=== PATIENT | male | born 1955 | race Caucasian/White ===

== ENCOUNTER → 2016-10-02 | Outpatient (CLI) | payer OTHER | LOC: YCFC.O 10:42 | PROVIDERS: ATTEND Anesthesiology Pain Medicine | DX: Z79.891 Long term (current) use of opiate analgesic (principal) | CPT/HCPCS: 80354; 80358; 80365; G0479 ==

== ENCOUNTER → 2016-11-21 | Outpatient (CLI) | payer OTHER | END | disposition home or self-care (01) | LOC: YCFC.O 16:09 | PROVIDERS: ATTEND Nurse Practitioner Family | DX: Z79.891 Long term (current) use of opiate analgesic (principal) ==

== ENCOUNTER → 2016-12-05 | Outpatient (CLI) | payer OTHER | END | disposition home or self-care (01) | LOC: GMAM 11:11 | PROVIDERS: ATTEND Family Medicine | DX: Z12.5 Encounter for screening for malignant neoplasm of prostate (principal) ==

== ENCOUNTER → 2016-12-19 | Outpatient (CLI) | payer OTHER | END | disposition home or self-care (01) | LOC: YCFC.O 15:36 | PROVIDERS: ATTEND Nurse Practitioner Family | DX: Z79.891 Long term (current) use of opiate analgesic (principal) ==

== ENCOUNTER → 2017-01-16 | Outpatient (CLI) | payer OTHER | END | disposition home or self-care (01) | LOC: YCFC.O 15:25 | PROVIDERS: ATTEND Anesthesiology Pain Medicine | DX: Z79.891 Long term (current) use of opiate analgesic (principal) ==

== ENCOUNTER → 2017-02-13 | Outpatient (CLI) | payer OTHER | LOC: YCFC.O 14:50 | PROVIDERS: ATTEND Anesthesiology Pain Medicine | DX: Z79.891 Long term (current) use of opiate analgesic (principal) ==

== ENCOUNTER → 2017-03-27 | Outpatient (CLI) | payer OTHER | END | disposition home or self-care (01) | LOC: YCFC.O 15:26 | PROVIDERS: ATTEND Anesthesiology Pain Medicine | DX: Z79.891 Long term (current) use of opiate analgesic (principal) ==

== ENCOUNTER → 2017-04-24 | Outpatient (CLI) | payer OTHER | END | disposition home or self-care (01) | LOC: YCFC.O 14:31 | PROVIDERS: ATTEND Anesthesiology Pain Medicine | DX: Z79.891 Long term (current) use of opiate analgesic (principal) ==

== ENCOUNTER → 2017-05-22 | Outpatient (CLI) | payer OTHER | END | disposition home or self-care (01) | LOC: YCFC.O 14:37 | PROVIDERS: ATTEND Anesthesiology Pain Medicine | DX: Z79.891 Long term (current) use of opiate analgesic (principal) ==

== ENCOUNTER → 2017-06-13 | Outpatient (CLI) | payer OTHER | END | disposition home or self-care (01) | LOC: GMAM 12:39 | PROVIDERS: ATTEND Family Medicine | DX: D64.9 Anemia, unspecified (principal) ==

== ENCOUNTER 2017-06-16 13:17 | Emergency (ER) | payer OTHER ==
[2017-06-16] MEDS ORDERED: IPRATROPIUM/ALBUTEROL 3 ML VIAL NEB ONE (13:50)
[2017-06-16] MEDS ORDERED: predniSONE 20 MG TAB PO ONE (13:50)
--- NOTE | 2017-06-16 14:09 | RAD ---
Procedure: XR CHEST 2 VIEWS Exam Date: 06/16/2017 1:49 PM CDT Ordering Provider: Drew Velasquez Clinical Indication: rll pleuritic pain Comparison: 2016 Findings: Small right middle lobe consolidative opacity is present. No pleural effusion or pneumothorax is seen. The heart size is normal. No acute osseous abnormality. Impression: Small right middle lobe opacification may represent early pneumonia/aspiration. Recommend follow-up with two views of the chest to document complete resolution.. Electronically signed by: Tania José MD 06/16/2017 2:08 PM CDT
[2017-06-16] MEDS ORDERED: levoFLOXacin 500 MG TAB PO ONE (14:25)
--- NOTE | 2017-06-16 14:27 | ED.PDOC ---
History of Present Illness - General Chief Complaint: Respiratory Problem Stated Complaint: Discomfort with deep breathing Time Seen by Provider: 06/16/17 13:38 Source: patient Exam Limitations: no limitations - History of Present Illness Initial Comments: the patient is a 62-year-old male with a history of COPD presenting secondary to right pleuritic chest pain to the lower half of the right chest for the last 24-36 hours. He has had a productive cough for the last several days. No definite fevers. No shortness of breath. He is currently taking Flagyl for a stomach infection. Pain is worse of course with taking a deep breath and coughing. Timing/Duration: 24 hours Severity: mild Improving Factors: nothing Associated Symptoms: cough Allergies/Adverse Reactions: Allergies Penicillins Allergy (Mild, Verified 06/16/17 13:28) Hives Home Medications: Ambulatory Orders Tpjxjlomewnxy-Cmbw-Sfggicimgs [Fioricet] 1 ea PO Q8H PRN #21 tab 06/16/17 Amitriptyline HCl [Elavil] 25 mg PO BEDTIME 06/16/17 Amlodipine Besylate 10 mg PO DAILY 06/16/17 Aspirin [Chavez Low Dose] 81 mg PO DAILY 06/16/17 Bismuth Subsalicylate [Kaopectate] 262 mg PO QID 06/16/17 Docusate Calcium 240 mg PO DAILY 06/16/17 Finasteride [Proscar] 5 mg PO DAILY 06/16/17 Glucosamine Sulfate 1,000 mg PO DAILY 06/16/17 Hydrocodone-Acetaminophen [Vicodin Es] 1 tab PO TID 06/16/17 Losartan Potassium & Hydrochlo [Losartan Potassium/Hydroc 100-25 mg] 1 tab PO DAILY 06/16/17 Meloxicam 15 mg PO DAILY 06/16/17 Metronidazole 250 mg PO QID 06/16/17 Multiple Vitamins W/ Minerals [Centrum Silver] 1 ea PO DAILY 06/16/17 Pantoprazole Tablet [Protonix] 40 mg PO DAILY 06/16/17 Potassium 99 mg PO DAILY 06/16/17 Tiotropium [place]-Olodaterol [Stiolto Respimat 2.5-2.5 Mcg/Act] 1 aer IN DAILY 06/16/17 levoFLOXacin [Levaquin] 500 mg PO DAILY #5 tab 06/16/17 Review of Systems - Review of Systems Constitutional: States: malaise EENTM: States: no symptoms reported Respiratory: States: cough Cardiology: States: chest pain - with breathing Gastrointestinal/Abdominal: States: no symptoms reported Genitourinary: States: no symptoms reported Musculoskeletal: States: no symptoms reported Skin: States: no symptoms reported Neurological: States: no symptoms reported Endocrine: States: no symptoms reported All other Systems: No Change from Baseline Past Medical History (General) - Patient Medical History Hx Seizures: No Hx Stroke: No Hx Dementia: No Hx Asthma: No Hx of COPD: Yes Hx Cardiac Disorders: No Hx Congestive Heart Failure: No Hx Pacemaker: No Hx Hypertension: Yes Hx Thyroid Disease: No Hx Diabetes: No Hx Gastroesophageal Reflux: Yes Hx Renal Disease: No Hx Cancer: No Hx of HIV: No Hx Hepatitis C: No Hx MRSA: No Surgical History: no surgical history - Vaccination History Hx Tetanus, Diphtheria Vaccination: No Hx Influenza Vaccination: Yes - 2016 Hx Pneumococcal Vaccination: No - Social History Hx Tobacco Use: Yes Hx Chewing Tobacco Use: No Hx Alcohol Use: No Hx Substance Use: No Hx Substance Use Treatment: No Hx Depression: No Hx Physical Abuse: No Hx Emotional Abuse: No Hx Suspected Abuse: No Family Medical History - Family History Mother Living Status: Still Living Hx Cardiac Disease: Yes Physical Exam - Physical Exam General Appearance: Alert, Comfortable, No apparent distress Eye Exam: bilateral normal Ears, Nose, Throat: hearing grossly normal, normal ENT inspection, normal pharynx Neck: full range of motion, supple Respiratory: chest non-tender, no respiratory distress, no accessory muscle use , other - he patient does have some audible ralesin the lower third of the right lung Cardiovascular/Chest: normal peripheral pulses, regular rate, rhythm, no edema Peripheral Pulses: radial,right: 2+, radial,left: 2+, dorsalis pedis,right: 2+, dorsalis pedis,left: 2+ Rectal Exam: deferred Back Exam: normal inspection, no CVA tenderness, no vertebral tenderness Extremity: normal range of motion, non-tender, normal inspection, no pedal edema , normal capillary refill 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 The patient was given 1 dose of prednisone for his COPD as well as for the pleuritic pain. He'll be written for a short prescription of Fioricet as well for the pleuritic pain. He is going to be placed on Levaquin for the next 5 days for the pneumonia. He does need follow-up with his primary care doctor next week for reevaluation to make sure that it is clearing. He does need to continue his inhaler use. No smoking. ER warnings were given for any worsening. He does need to take deep breaths and make himself cough to prevent further atelectasis and pleuritic pains. Departure - Departure Clinical Impression: Pneumonia Qualifiers: Pneumonia type: due to unspecified organism Laterality: right Lung location: lower lobe of lung Qualified Code(s): J18.1 - Lobar pneumonia, unspecified organism Disposition: Discharge to Home or Self Care Condition: Fair Departure Forms: ED Discharge - Pt. Copy, Patient Portal Self Enrollment Diet: regular diet Activity: increase activity as tolerated Referrals: Deondre Velasquez MD [Primary Care Provider] - 1-5 Days Prescriptions: Astyefygjhvcz-Odpw-Kpkwdzxtcj [Fioricet] 1 ea PO Q8H PRN #21 tab PRN Reason: Pain levoFLOXacin [Levaquin] 500 mg PO DAILY #5 tab Home Medications: Ambulatory Orders Bvtasprxwhvay-Imaa-Blbiggpjlx [Fioricet] 1 ea PO Q8H PRN #21 tab 06/16/17 Amitriptyline HCl [Elavil] 25 mg PO BEDTIME 06/16/17 Amlodipine Besylate 10 mg PO DAILY 06/16/17 Aspirin [Chavez Low Dose] 81 mg PO DAILY 06/16/17 Bismuth Subsalicylate [Kaopectate] 262 mg PO QID 06/16/17 Docusate Calcium 240 mg PO DAILY 06/16/17 Finasteride [Proscar] 5 mg PO DAILY 06/16/17 Glucosamine Sulfate 1,000 mg PO DAILY 06/16/17 Hydrocodone-Acetaminophen [Vicodin Es] 1 tab PO TID 06/16/17 Losartan Potassium & Hydrochlo [Losartan Potassium/Hydroc 100-25 mg] 1 tab PO DAILY 06/16/17 Meloxicam 15 mg PO DAILY 06/16/17 Metronidazole 250 mg PO QID 06/16/17 Multiple Vitamins W/ Minerals [Centrum Silver] 1 ea PO DAILY 06/16/17 Pantoprazole Tablet [Protonix] 40 mg PO DAILY 06/16/17 Potassium 99 mg PO DAILY 06/16/17 Tiotropium [place]-Olodaterol [Stiolto Respimat 2.5-2.5 Mcg/Act] 1 aer IN DAILY 06/16/17 levoFLOXacin [Levaquin] 500 mg PO DAILY #5 tab 06/16/17 Additional Instructions: the patient is a 62-year-old male presenting to the emergency room secondary to pleurisy that appears to be due to a small right lower third lung pneumonia. The patient was given 1 dose of prednisone for his COPD as well as for the pleuritic pain. He'll be written for a short prescription of Fioricet as well for the pleuritic pain. He is going to be placed on Levaquin for the next 5 days for the pneumonia. He does need follow-up with his primary care doctor next week for reevaluation to make sure that it is clearing. He does need to continue his inhaler use. No smoking. ER warnings were given for any worsening. He does need to take deep breaths and make himself cough to prevent further atelectasis and pleuritic pains.
[2017-06-16 14:41] VITALS: BP 125/62; TEMP 96.8; O2SAT 97
== END 2017-06-16 14:41 | disposition home or self-care (01) ==
LOC: ER 13:17
DX: J18.1 Lobar pneumonia, unspecified organism (principal); J44.9 Chronic obstructive pulmonary disease, unspecified; Z87.891 Personal history of nicotine dependence; I10 Essential (primary) hypertension; K21.9 Gastro-esophageal reflux disease without esophagitis; Z79.899 Other long term (current) drug therapy; Z88.0 Allergy status to penicillin
CPT/HCPCS: 71020; 94640; J7512; J7620

== ENCOUNTER → 2017-06-19 | Outpatient (CLI) | payer OTHER | END | disposition home or self-care (01) | LOC: YCFC.O 15:08 | PROVIDERS: ATTEND Anesthesiology Pain Medicine | DX: Z79.891 Long term (current) use of opiate analgesic (principal) ==

== ENCOUNTER → 2017-07-24 | Outpatient (CLI) | payer OTHER | END | disposition home or self-care (01) | LOC: YCFC.O 13:04 | PROVIDERS: ATTEND Anesthesiology Pain Medicine | DX: Z79.891 Long term (current) use of opiate analgesic (principal) ==

== ENCOUNTER 2017-08-13 13:44 | Observation (INO) | payer OTHER ==
[2017-08-13] MEDS ORDERED: ASPIRIN TABLET 325 MG TAB PO ONE (13:56)
--- NOTE | 2017-08-13 14:32 | RAD ---
EXAM DESCRIPTION: Chest,1 View CLINICAL HISTORY: 62 years Male, possible tia. Weakness. Malaise. COMPARISON: 06/16/2017 IMPRESSION: The heart remains at the upper limits of normal in size, with borderline central pulmonary vascular congestion. There is a questionable nodular opacity in the lateral aspect of the right upper lung zone which is favored to represent summation artifact of overlying osseous structures, but consolidation or a pulmonary nodule is not excluded. Follow-up PA and lateral chest radiographs versus CT chest recommended. The lungs are mildly hyperexpanded. There is no pleural effusion or pneumothorax. No acute osseous abnormality. Electronically signed by: Antoine Rob MD 08/13/2017 2:31 PM CUSTOMER SUPPORT AGENT
--- NOTE | 2017-08-13 14:35 | CT ---
EXAM DESCRIPTION: Head CLINICAL HISTORY: TIA. CVA. Weakness. COMPARISON: None available TECHNIQUE: Multiple axial images of the head without contrast. Multiplanar reformatted images. This exam was performed according to our departmental dose-optimization program, which includes automated exposure control, adjustment of the mA and/or kV according to patient size and/or use of iterative reconstruction technique. FINDINGS: There is no CT evidence of intracranial hemorrhage, mass effect, or large territory infarction. Mild generalized volume loss is present. Mild patchy supratentorial white matter hypodensities. There are no abnormal extra-axial fluid collections. Calcific plaque in the visualized arteries. There is no acute calvarial defect. Mucosal thickening throughout the maxillary sinuses and ethmoid air cells. The mastoid air cells are clear. IMPRESSION: 1. No CT evidence of an acute intracranial abnormality. If there is concern for an acute or subacute infarct, consider follow-up MRI. 2. Senescent changes. Electronically signed by: Antoine Rob MD 08/13/2017 2:34 PM 5TH GRADE TEACHER
--- NOTE | 2017-08-13 18:47 | ED.PDOC ---
History of Present Illness - General Chief Complaint: Neuro Symptoms/Deficits Stated Complaint: left side facial droop Time Seen by Provider: 08/13/17 13:49 Source: patient Exam Limitations: no limitations - History of Present Illness Initial Comments: the patient is a 62-year-old male brought in by his secondary to sudden onset of inability to move the right side of his face. From the time the noticed it until the patient presented here was less than 30 minutes and in that timeframe symptoms had completely resolved. She reports that he had some difficulty with slurring of his speech. He apparently did not have much difficulty finding his words. No difficulty with movement or sensation of his upper or lower extremities. No loss of consciousness. No chest pain or palpitations. No drowsiness. Timing/Duration: 1/2 hour Severity: moderate Improving Factors: nothing Worsening Factors: nothing Associated Symptoms: denies symptoms Allergies/Adverse Reactions: Allergies Penicillins Allergy (Mild, Verified 06/16/17 13:28) Hives Home Medications: Ambulatory Orders Amitriptyline HCl [Elavil] 25 mg PO BEDTIME 06/16/17 Amlodipine Besylate 10 mg PO DAILY 06/16/17 Aspirin [Chavez Low Dose] 81 mg PO DAILY 06/16/17 Finasteride [Proscar] 5 mg PO DAILY 06/16/17 Glucosamine Sulfate 1,000 mg PO DAILY 06/16/17 Meloxicam 15 mg PO DAILY 06/16/17 Multiple Vitamins W/ Minerals [Centrum Silver] 1 ea PO DAILY 06/16/17 Pantoprazole Tablet [Protonix] 40 mg PO DAILY 06/16/17 Potassium 99 mg PO DAILY 06/16/17 Ascorbic Acid [Vitamin C] 500 mg PO DAILY 08/13/17 B-Complex W/ Folic Acid [Super B Complex Maxi] 1 tab PO DAILY 08/13/17 Budesonide-Formoterol Fumarate [Symbicort] 1 aer IN DAILY 08/13/17 Cyclobenzaprine HCl 10 mg PO Q8H PRN 08/13/17 Docusate Sodium 100 mg PO DAILY 08/13/17 HYDROcodone 7.5MG/APAP 325MG [[place] 7.5/325] 1 ea PO Q8H 08/13/17 Losartan Potassium & Hydrochlo [Losartan Potassium/Hydroc 100-25 mg] 1 tab PO DAILY 08/13/17 Magnesium 500 mg PO DAILY 08/13/17 Umeclidinium [place] [Incruse Ellipta] 62.5 mcg IN DAILY 08/13/17 Review of Systems - Review of Systems Constitutional: States: no symptoms reported EENTM: States: no symptoms reported Respiratory: States: no symptoms reported Cardiology: States: no symptoms reported Gastrointestinal/Abdominal: States: no symptoms reported Genitourinary: States: no symptoms reported Musculoskeletal: States: no symptoms reported Skin: States: no symptoms reported Neurological: States: see HPI Endocrine: States: no symptoms reported Hematologic/Lymphatic: States: no symptoms reported All other Systems: No Change from Baseline Past Medical History (General) - Patient Medical History Hx Seizures: No Hx Stroke: No Hx Dementia: No Hx Asthma: No Hx of COPD: Yes Hx Cardiac Disorders: No Hx Congestive Heart Failure: No Hx Pacemaker: No Hx Hypertension: Yes Hx Thyroid Disease: No Hx Diabetes: No Hx Gastroesophageal Reflux: Yes Hx Renal Disease: No Hx Cancer: No Hx of HIV: No Hx Hepatitis C: No Hx MRSA: No Surgical History: no surgical history - Vaccination History Hx Tetanus, Diphtheria Vaccination: No Hx Influenza Vaccination: Yes - 2016 Hx Pneumococcal Vaccination: No - Social History Hx Tobacco Use: Yes Hx Chewing Tobacco Use: No Hx Alcohol Use: No Hx Substance Use: No Hx Substance Use Treatment: No Hx Depression: No Hx Physical Abuse: No Hx Emotional Abuse: No Hx Suspected Abuse: No - Triage Comment ED Triage Comment: Daughter states patient has left sided facial droop. Family Medical History - Family History Mother Living Status: Still Living Hx Cardiac Disease: Yes Physical Exam - Physical Exam General Appearance: Alert, Comfortable, No apparent distress Eye Exam: bilateral normal Ears, Nose, Throat: hearing grossly normal, normal ENT inspection, normal pharynx Neck: full range of motion, supple, normal inspection Respiratory: lungs clear, normal breath sounds, no respiratory distress, no accessory muscle use Cardiovascular/Chest: normal peripheral pulses, regular rate, rhythm, no edema Peripheral Pulses: radial,right: 2+, radial,left: 2+, dorsalis pedis,right: 2+, dorsalis pedis,left: 2+ Gastrointestinal/Abdominal: non tender, soft Rectal Exam: deferred Back Exam: no CVA tenderness Extremity: normal range of motion, non-tender, normal inspection, no pedal edema , normal capillary refill 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, no motor/sensory deficits, alert, normal mood/affect, oriented x 3 DTR: 2+: Patellar, left, Patellar, right Skin Exam: normal color Comments: Vital Signs - 24 hr 08/13/17 08/13/17 08/13/17 13:45 13:52 14:30 Temperature Pulse Rate [ 84 83 85 Right] Respiratory 18 20 18 Rate Blood Pressure 132/66 160/77 131/67 [Right Arm] O2 Sat by Pulse 97 100 98 Oximetry 08/13/17 08/13/17 08/13/17 16:00 16:40 17:00 Temperature 97.0 F L Pulse Rate [ 82 83 Right] Respiratory 18 18 Rate Blood Pressure 138/81 154/73 [Right Arm] O2 Sat by Pulse 96 96 Oximetry 08/13/17 18:00 Temperature Pulse Rate [ 87 Right] Respiratory 18 Rate Blood Pressure 145/79 [Right Arm] O2 Sat by Pulse 96 Oximetry Progress - Progress Progress: 08/13/17 18:50 the patient is a 62-year-old male presenting with what is most likely a TIA. the 's description was fairly convincing. All symptoms seemed to have resolved by the time he arrived here. The patient will be admitted for observation. Continue telemetry monitoring and neuro checks. Head CT is reassuring. EKG is reassuring. There has been no elevation of the troponin. Aspirin has been given a full dose. Consideration can be given to the continuation of his current aspirin dosage versus switching to Plavix or adding Plavix or switching to Aggrenox in the future to prevent further events. Additional vascular imaging may be warranted. - Results/Orders Results/Orders: Laboratory Tests 08/13/17 08/13/17 08/13/17 13:55 13:56 13:56 WBC RBC Hgb Hct MCV MCH MCHC RDW Plt Count MPV Absolute Neuts (auto) Absolute Lymphs (auto) Absolute Monos (auto) Absolute Eos (auto) Absolute Basos (auto) Neutrophils % Lymphocytes % Monocytes % Eosinophils % Basophils % PT 11.8 INR 1.040 PTT (SP) 30.7 Sodium 134 L Potassium 3.8 Chloride 100 L Carbon Dioxide 25 Anion Gap 12.8 BUN 17 Creatinine 1.07 BUN/Creatinine Ratio 15.9 Random Glucose 123 H Serum Osmolality 271.1 L Calcium 9.2 Magnesium 1.9 Total Bilirubin 0.4 AST 24 ALT 22 Alkaline Phosphatase 151 H Creatine Kinase 57 CK-MB (CK-2) 5.9 H* CK-MB (CK-2) % 10.35 H Troponin I < 0.02 B-Natriuretic Peptide 32.5 Serum Total Protein 7.0 Albumin 3.9 Globulin 3.1 Albumin/Globulin Ratio 1.3 08/13/17 08/13/17 14:07 17:35 WBC 8.1 RBC 4.11 L Hgb 10.8 L Hct 32.8 L MCV 79.8 L MCH 26.2 L MCHC 32.9 L RDW 16.7 H Plt Count 308 MPV 8.1 Absolute Neuts (auto) 6.30 Absolute Lymphs (auto) 1.20 Absolute Monos (auto) 0.40 Absolute Eos (auto) 0.10 Absolute Basos (auto) 0.10 Neutrophils % 78.2 H Lymphocytes % 14.3 L Monocytes % 5.3 Eosinophils % 1.2 Basophils % 1.0 PT INR PTT (SP) Sodium Potassium Chloride Carbon Dioxide Anion Gap BUN Creatinine BUN/Creatinine Ratio Random Glucose Serum Osmolality Calcium Magnesium Total Bilirubin AST ALT Alkaline Phosphatase Creatine Kinase 55 CK-MB (CK-2) 5.7 H* CK-MB (CK-2) % 10.36 H Troponin I < 0.02 B-Natriuretic Peptide Serum Total Protein Albumin Globulin Albumin/Globulin Ratio chest x-ray shows no evidence of acute pathology. There is a question of a small nodule that needs a repeat radiological study in the near future. Head CT shows no evidence of any hemorrhage or acute ischemic stroke. No significant hydrocephalus. No significant mass effect. eKG shows normal sinus rhythm. No acute ST segment changes concerning for ischemia.normal axis. Normal QT interval. - EKG/XRAY/CT CT Ordered: Yes Departure - Departure Clinical Impression: Transient ischaemic attack (TIA), and cerebral infarction without residual deficits Disposition: Admit Patient Condition: Fair Referrals: Deondre Velasquez MD [Primary Care Provider] - 1-2 Weeks Home Medications: Ambulatory Orders Amitriptyline HCl [Elavil] 25 mg PO BEDTIME 06/16/17 Amlodipine Besylate 10 mg PO DAILY 06/16/17 Aspirin [[place] Low Dose] 81 mg PO DAILY 06/16/17 Finasteride [Proscar] 5 mg PO DAILY 06/16/17 Glucosamine Sulfate 1,000 mg PO DAILY 06/16/17 Meloxicam 15 mg PO DAILY 06/16/17 Multiple Vitamins W/ Minerals [Centrum Silver] 1 ea PO DAILY 06/16/17 Pantoprazole Tablet [Protonix] 40 mg PO DAILY 06/16/17 Potassium 99 mg PO DAILY 06/16/17 Ascorbic Acid [Vitamin C] 500 mg PO DAILY 08/13/17 B-Complex W/ Folic Acid [Super B Complex Maxi] 1 tab PO DAILY 08/13/17 Budesonide-Formoterol Fumarate [Symbicort] 1 aer IN DAILY 08/13/17 Cyclobenzaprine HCl 10 mg PO Q8H PRN 08/13/17 Docusate Sodium 100 mg PO DAILY 08/13/17 HYDROcodone 7.5MG/APAP 325MG [[place] 7.5/325] 1 ea PO Q8H 08/13/17 Losartan Potassium & Hydrochlo [Losartan Potassium/Hydroc 100-25 mg] 1 tab PO DAILY 08/13/17 Magnesium 500 mg PO DAILY 08/13/17 Umeclidinium [place] [Incruse Ellipta] 62.5 mcg IN DAILY 08/13/17 Decision To Admit - Decistion To Admit Decision to Admit Reason: Medical Nature Decision to Admit Date: 08/13/17 Decision to Admit Time: 18:53
[2017-08-13] MEDS ORDERED: SODIUM CHLORIDE 0.9% (FLUSH) 10 ML SYG IV PRN (20:24)
[2017-08-13] MEDS ORDERED: MAGNESIUM HYDROXIDE 30 ML UD PO PRN (20:24)
[2017-08-13] MEDS ORDERED: LEVALBUTEROL NEBS 1.25 MG/3 ML VIAL INH PRN (20:24)
[2017-08-13] MEDS ORDERED: ENOXAPARIN SODIUM 40 MG/0.4 ML SYG SUBCU SCH (20:30)
[2017-08-13] MEDS ORDERED: IV SET AND CAP CHANGE INJ INJ SCH (20:30)
--- NOTE | 2017-08-13 20:37 | PCM.CORE ---
Physician DVT/VTE - Prophylaxis Currently: Patient already on anticoagulation therapy - 2 Moderate Risk Treatments: Sequential Compression Device
--- NOTE | 2017-08-13 20:39 | HP ---
HISTORY OF PRESENT ILLNESS: This 62 year-old white male is placed in the hospital from the Emergency Room because of an acute onset of left facial weakness showing almost complete resolution and return towards normal but requiring observation overnight. No previous history of similar symptoms in the past. This had its occurrence after awakening from a sleep as he was getting some food and occurred about 1:30 PM this afternoon. Duration was 20 to 30 minutes. No pain. When his left side of his face was touched, there was no significant numbness. Some slurred speech was noted by family but he says he has some of that anyway because he does not have any teeth. There was no choking. He has noted a sore throat for the last 7 days [address] has [address] Dr[address] Velasquez , his primary care physician, and no Strep was noted. There was no associated arm or leg weakness or difficulty walking and no cardiac rhythm disturbances or palpitations were noted. He does have chronic low back pain for which he takes [place] 7.5 mg 3 times a day with radiation of the pain down his right leg and sees the pain clinic which he did see earlier this morning, but did not receive any injections. Otherwise has continued on his t.i.d. [place]. The patient is placed in the hospital for observation overnight and to obtain a carotid Doppler ultrasound in the morning to complete the evaluation along with telemetry overnight. PAST MEDICAL HISTORY: 1. Hypertension. 2. Low back pain chronically. 3. Chronic obstructive pulmonary disease in a chronic smoker now stopped for a year. 4. Gastroesophageal reflux disease. 5. Weakness. 6. Anemia. PAST SURGICAL HISTORY: None. CURRENT MEDICATIONS: Please refer to nurses' notes for a list of verified home medications. ALLERGIES: PENICILLIN AND ORANGE JUICE UPSETS HIS STOMACH. FAMILY HISTORY: Positive for coronary artery disease, strokes and cancer. 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 Tobacco: He has about a 60 pack year history of smoking, stopping about a year ago. He stopped drinking alcoholic beverages which he significantly consumed in the past as well. REVIEW OF SYSTEMS: Some weight gain recently because not being as active as he would like to be. HEENT: No significant hearing or vision disturbances evident. LUNGS: Some chronic shortness of breath upon exertion. No significant hemoptysis. CARDIOVASCULAR: No chest pains or palpitations noted. GASTROINTESTINAL: Appetite is fair. No nausea, vomiting or blood in the stools. GENITOURINARY: No dysuria. EXTREMITIES: No significant pedal edema or decreased range of motion. NEUROLOGIC: Transient 20 to 30 minutes of left sided facial weakness with no paresthesias noted by the family with no previous history, now resolved and back to normal. PHYSICAL EXAMINATION: VITAL SIGNS: Afebrile, pulse 83, blood pressure 138/77, pulse oximetry 98% on room air. Weight 79 kilos stated weight, not measured. GENERAL: The patient is awake, alert and oriented. He is able to ambulate and feels more comfortable sitting in a chair during the exam. He is quite cool in the E. R. environment. HEENT: No facial weakness or asymmetry evident. NECK: Supple. No adenopathy or thyroid enlargement. CHEST: Lungs have some diminished breath sounds with occasional rhonchi. CARDIOVASCULAR: Heart tones are regular without any significant gallops. ABDOMEN: Distended and somewhat tight. No tympani. No organomegaly evident but he does have some distention of intraabdominal bowel contents. History of a ventral hernia, generally asymptomatic. EXTREMITIES: Well formed. No weakness. No significant edema. NEUROLOGIC: The patient is awake, alert and oriented, and communicative. Able to ambulate. Able to move all extremities with no significant motor or sensory deficits at this time. LABORATORY: White count 8,100, hemoglobin 10.8 with a microcytic hypochromic presentation. INR of 1.04. Chemistry shows potassium 3.8, sodium 134, CO2 25, BUN 17, creatinine 1.07, glucose 123. CPK is normal yet CK-MB elevated at 5.9, troponin zero. Beta natriuretic peptide 32.5, albumin 3.9. Urinalysis is pending. RADIOLOGY: X-rays showed no acute findings on the head CT or the chest x-ray but there may be a small pulmonary nodule present which will be followed-up closely in the morning with a two view chest film. ASSESSMENT: 1. Acute transient ischemic attack with left facial motor involvement and weakness now resolved to normality. No evidence of central or peripheral facial nerve involvement because we were unable to examine at the time of the neurological deficit possible transient ischemic attack. 2. Hypertension. 3. Chronic low back pain being seen in the pain clinic and on t.i.d. 7.5 Hydrocodone. 4. Chronic obstructive pulmonary disease in a chronic smoker now stopped for a year with over a 60 pack year history of smoking. 5. History of gastroesophageal reflux disease. 6. History of weakness. 7. History of anemia with a microcytic hypochromic presentation. PLAN: Repeat evaluation in the morning. Await carotid ultrasound Doppler exam. Observe telemetry tonight. Await TSH and other iron studies as well as repeat chest x-ray in the morning to evaluate for a possible pulmonary nodule. Close followup in the clinic with Dr. Velasquez to follow. Continue with aspirin 81 mg per day prophylaxis. #[id number] [facility]
[2017-08-13] MEDS ORDERED: AMITRIPTYLINE HCL 25 MG TAB PO SCH (21:00)
[2017-08-13] MEDS ORDERED: HYDROcodone 10MG/APAP 325MG 1 EA TAB ONE (21:50)
[2017-08-13] MEDS: HYDROcodone 7.5MG/APAP 325MG 1 EA TAB PO SCH (22:05)
[2017-08-13] MEDS: IPRATROPIUM/ALBUTEROL 3 ML VIAL INH SCH (22:13)
[2017-08-14] MEDS: HYDROcodone 7.5MG/APAP 325MG 1 EA TAB PO SCH (05:29)
[2017-08-14] MEDS ORDERED: OMEPRAZOLE CAP 20 MG CAP PO SCH (06:30)
--- NOTE | 2017-08-14 07:21 | RAD ---
EXAM DESCRIPTION: Chest,2 Views CLINICAL HISTORY: TIA, Pulm Nodule? COMPARISON: August 13, 2017 FINDINGS: The cardiomediastinal silhouette is unremarkable. There is no airspace consolidation or pleural effusion. Again seen is a pleural-based nodular opacity versus focal pleural thickening in the mid right lung, not significantly changed from yesterday's exam. There is no pneumothorax or acute fracture. IMPRESSION: Probable smooth focal pleural thickening in the mid right lung, less likely pleural-based nodule, unchanged from yesterday. This is new from September 04, 2015. Chest CT with IV contrast should be considered for further evaluation. No new abnormality or other significant change from yesterday. Electronically signed by: Jony Melara MD 08/14/2017 7:20 AM DOUGH BRAKER
[2017-08-14] MEDS ORDERED: MELOXICAM 7.5 MG TAB ONE (07:44)
[2017-08-14] MEDS ORDERED: amLODIPine BESYLATE 5 MG TAB ONE (07:45)
[2017-08-14] MEDS: IPRATROPIUM/ALBUTEROL 3 ML VIAL INH SCH ×2 (08:24→11:49)
[2017-08-14] MEDS ORDERED: NON-FORMULARY MEDICATION 1 EA MIS (Umeclidinium Bromide [Incruse Ellipta] 62.5 MCG) INH SCH (09:00)
[2017-08-14] MEDS ORDERED: LOSARTAN POTASSIUM 25 MG TAB PO SCH (09:00)
[2017-08-14] MEDS ORDERED: ASPIRIN (CHEWABLE) 81 MG TAB PO SCH (09:00)
[2017-08-14] MEDS ORDERED: BUDESONIDE/FORMOTEROL 160/4.5 60 PUFF/6 GM INH INH SCH (09:00)
[2017-08-14] MEDS ORDERED: amLODIPine BESYLATE 5 MG TAB PO SCH (09:00)
[2017-08-14] MEDS ORDERED: MELOXICAM 7.5 MG TAB PO SCH (09:00)
[2017-08-14] MEDS ORDERED: DOCUSATE SODIUM 100 MG CAP PO SCH (09:00)
--- NOTE | 2017-08-14 11:09 | US ---
EXAM DESCRIPTION: Carotid Duplex CLINICAL HISTORY: TIA with left facial weakness COMPARISON: None Available. TECHNIQUE: Color Doppler evaluation of the extracranial carotids FINDINGS: Right carotid: The right common carotid artery shows mild diffuse intimal thickening. There is mild to moderate smooth mostly hypoechoic noncalcified soft plaque in the carotid bulb extending into the proximal internal carotid artery Peak systolic velocity common carotid artery = 86 cm/s Peak systolic velocity internal carotid artery = 100 to cm/s Peak systolic velocity external carotid artery = 116 cm/s ICA CCA ratio 1.2 Left carotid: There is diffuse intimal thickening throughout the left common carotid artery. There is heterogeneous irregular partly calcified moderate plaque in the carotid bulb extending into the proximal to mid left internal carotid artery. There is up to 80% narrowing by 2-D measurements in the internal carotid artery. Peak systolic velocity common carotid artery = 88 cm/s Peak systolic velocity internal carotid artery = 400 cm/s Peak systolic velocity external carotid artery = 88 cm/s ICA CCA ratio 4.5 Antegrade flow is seen in both vertebral arteries Normal flow velocities and waveforms are demonstrated bilaterally. IMPRESSION: Moderate partly calcified atherosclerotic disease of the left carotid bulb to ICA with elevated velocities and ratios captain assistant with 80-99% stenosis by ultrasound criteria. Mostly soft plaque in the carotid bulb to proximal right ICA seen with velocities and ratios suggesting less than 39% stenosis of the ICA. Electronically signed by: Maynor Gaston MD 08/14/2017 11:08 AM [employer]
[2017-08-14 11:16] VITALS: BP 112/67; TEMP 97.1
--- NOTE | 2017-08-14 13:21 | DS ---
DISCHARGE DIAGNOSIS: 1. Acute transient ischemic attack involving the right facial muscles, witnessed by the , but resolved by the time of entry to the Emergency Room. 2. Hemodynamically significant left carotid artery stenosis between 80% and 99 % with significant progression since last ultrasound Doppler exam in 2016. 3. History of hypertension. 4. History of chronic low back pain, being followed in the pain clinic and receiving hydrocodone 7.5 mg t.i.d. for pain relief. 5. Chronic obstructive pulmonary disease in a chronic smoker, now stopped after over a 60 pack year history of smoking and stopped over a year ago. 6. History of gastroesophageal reflux disease. 7. History of weakness. 8. History of anemia with a microcytic/hypochromic presentation. 9. History of abnormal chest x-ray with possible pleural-based opacity requiring CT evaluation with IV contrast for further delineation. HISTORY OF PRESENT ILLNESS: This 62-year-old white male was placed in the hospital from the Emergency Room for overnight observation because of the development of transient right sided facial weakness for 20 to 30 minutes and then almost complete resolution of the symptoms. There was confusion when the patient first came into the Emergency Room as to whether it was the left or right side, but further questioning with the present did point more to her observed noted weakness of the right side of his face. This was not observed as a focal neurological deficit in the Emergency Room or subsequently in the observed state in the hospital. No previous history of similar symptoms in the past. No weakness otherwise evident to be different than the usual weakness that he has noted in the right extremities in the past. No paresthesias associated with the facial weakness. The patient was placed in the hospital and continued on aspirin prophylaxis as well as DVT prophylaxis while in the hospital. LABORATORY: White count 7,000, hemoglobin up to 11.5 with hypochromic presentation. INR 1.04. Chemistries show potassium 3.8, sodium up to 138, BUN 18, creatinine 1.21, glucose 114. Iron low at 22. Total iron binding capacity is high at 406 and saturation is low at 5.4. Troponin was 0, but he did have elevated CK-MB at 5.7. Cholesterol 132. TSH elevated at 6. No urinalysis collected. No cultures obtained. RADIOLOGY: Chest x-ray, repeat two view, did show evidence of of a right mid lung focal pleural thickening with suggestion of a CT scan to be performed with IV contrast for further evaluation. Especially with the patient's previous history of smoking, further investigation encouraged. Also, carotid artery ultrasound Doppler performed and significant hemodynamic obstruction with stenosis is noted on the left with 80% to 99% ultrasound criteria stenosis noted. Only 39% stenosis noted on the right. Close followup and reevaluation to be performed. HOSPITAL COURSE: The patient was feeling much improved on the morning of discharge. No residual weakness or facial neuro changes have been noted while in the hospital. The is present and also states he appears to be back to his usual, normal self. The patient's condition is discussed with Dr. Velasquez who will assist in making plans for further evaluation. PLAN: The patient will be seen by Dr. Velasquez this Sunday at 11:15 AM. He will notify Dr. Velasquez that he has been seen by Dr. Figueroa in [place] as a vascular specialist and hopefully he can get into the clinic more quickly than next week for evaluation. He is sent home with copies of x-rays as well as carotid ultrasound Doppler exams to allow the specialist to also see the films themselves. Dr. Velasquez will also assist with scheduling a CT of the chest with IV contrast to more fully evaluate especially the pleural based opacification on the right mid lung field, etc. The patient may increase his baby aspirin from 1 to 2 a day for the next week and then return to one daily. Avoid overexertion. Return if not improving. He has completely stopped smoking and this will continue. Close followup is necessary. #[id number] [facility]
[2017-08-14 18:32] VITALS: O2SAT 99
[2017-08-14] MEDS ORDERED: ENOXAPARIN SODIUM 40 MG/0.4 ML SYG SUBCU SCH (21:00)
== END 2017-08-14 13:25 | disposition home or self-care (01) ==
LOC: ER 13:44 → MS 20:37
PROVIDERS: ADMIT Emergency Medicine; ATTEND Emergency Medicine
DX: G45.9 Transient cerebral ischemic attack, unspecified (principal); I10 Essential (primary) hypertension; G89.29 Other chronic pain; M54.5 Low back pain; J44.9 Chronic obstructive pulmonary disease, unspecified; K21.9 Gastro-esophageal reflux disease without esophagitis; R91.8 Other nonspecific abnormal finding of lung field; Z79.82 Long term (current) use of aspirin; Z79.1 Long term (current) use of non-steroidal anti-inflammatories (NSAID); Z79.899 Other long term (current) drug therapy; Z88.0 Allergy status to penicillin; Z86.2 Personal history of diseases of the blood and blood-forming organs and certain disorders involving the immune mechanism; Z87.891 Personal history of nicotine dependence; Z82.49 Family history of ischemic heart disease and other diseases of the circulatory system; Z82.3 Family history of stroke
CPT/HCPCS: 36415 ×3; 70450; 71010; 71020; 80048; 80053; 80061; 82550 ×2; 82553 ×2; 83540; 83550; 83735; 83880; 84443; 84484 ×2; 85025 ×2; 85610; 85730; 93005; 93880; 94640 ×2; 94760 ×2; 96372; 99284; G0378; J1650; J7620 ×2

== ENCOUNTER → 2017-08-13 | Outpatient (CLI) | payer OTHER | END | disposition home or self-care (01) | LOC: YCFC.O 11:38 | PROVIDERS: ATTEND Anesthesiology Pain Medicine | DX: Z79.891 Long term (current) use of opiate analgesic (principal) ==

== ENCOUNTER → 2017-10-29 | Outpatient (CLI) | payer OTHER ==
--- NOTE | 2017-10-29 14:27 | MRI ---
EXAM DESCRIPTION: Brain w/wo Contrast: Magnetic Resonance Imaging. CLINICAL HISTORY: MALIGNANT NEOPLASM OF UNSPECIFIED PART OF RT BRONCHUS COMPARISON: None. TECHNIQUE: Multiplanar, high-field MRI, multiple conventional sequences, without and with gadolinium IV contrast. No adverse reactions. Multiple axial diffusion sequences. FINDINGS: Few bilateral foci of bright FLAIR and T2-weighted signal in the periventricular white matter and bishop-white matter junctions of the cerebral hemispheres. No hemorrhage, no cerebral edema, no mass-effect. Normal contrast enhancement. Normal signal in the bilateral basal ganglia. No hemorrhage, no cerebral edema, no mass-effect. Normal contrast enhancement. Normal signal in the brainstem and cerebellar hemispheres. No hemorrhage, no cerebral edema, no mass-effect. Normal contrast enhancement. Concordance of the diffusion and non-diffusion sequences with no evidence of acute or subacute infarction. Cortical sulci, ventricles, and other CSF spaces, and the subdural spaces are normally configured. No effacement or displacement. No midline shift. No extra-axial hemorrhage. Normal contrast enhancement. Normal flow signal void in the major vessels of the [place], and the venous sinuses. IACs are symmetric bilaterally. Normal signal in the bilateral mastoid air cells. No mass effect in the bilateral Cerebellopontine angles. Normal contrast enhancement. Pituitary gland occupies most of the sella. Normal contrast enhancement. Base of the cerebellar tonsils is just above the foramen magnum. Minimal mucoperiosteal thickening in the paranasal sinuses. The bony calvarium is intact. IMPRESSION: 1. Bilateral small foci of bright signal in the periventricular white matter and subcortical white matter is most likely related to early cerebral microvascular disease. Less likely due to vasculitis, old inflammatory process, demyelinating process, or migraine headaches. No mass effect, no hemorrhage, no abnormal contrast enhancement. 2. Normal noncontrast MRI diffusion scan with no evidence of acute or subacute infarction. Electronically signed by: Elijah Smallwood MD 10/29/2017 2:27 PM [employer] PRESS OPERATOR
== END ==
LOC: MRI 09:59
PROVIDERS: ATTEND Internal Medicine Hematology & Oncology
DX: C34.90 Malignant neoplasm of unspecified part of unspecified bronchus or lung (principal)

== ENCOUNTER 2017-11-01 16:40 | Emergency (ER) | payer OTHER ==
--- NOTE | 2017-11-01 17:09 | ED.PDOC ---
History of Present Illness - General Chief Complaint: Back Pain or Injury Stated Complaint: Lumbar back discomfort Time Seen by Provider: 11/01/17 17:05 Source: patient, family Exam Limitations: no limitations - History of Present Illness Initial Comments: HE HAD A FALL AT HIS MOTHER [place] [facility] SUNDAY. SINCE THEN HE HAS BEEN C/O BACK PAIN. THIS MORNING HE SCHEDULED AN APPOINTMENT WITH DR. VELASQUEZ, THE PA SAW HIM AND FOUND A 40%COMPRESSION FRACTURE OF L5. HE WAS SENT TO THE ED FOR FURTHER EVALUATION. HE WAS RECENTLY DIAGNOSED WITH STAGE 4 CANCER OF THE LUNG. HE IS BEING TREATED WITH CHEMO BY DR. CARRASQUILLO IN [place]. HE ALSO IS ON PAIN MANAGEMENT. Allergies/Adverse Reactions: Allergies Penicillins Allergy (Mild, Verified 11/01/17 16:53) Hives Home Medications: Ambulatory Orders Amitriptyline HCl [Elavil] 25 mg PO BID 06/16/17 Amlodipine Besylate 10 mg PO DAILY 06/16/17 Aspirin [Chavez Low Dose] 81 mg PO DAILY 06/16/17 Finasteride [Proscar] 5 mg PO DAILY 06/16/17 Glucosamine Sulfate 1,000 mg PO DAILY 06/16/17 Meloxicam 15 mg PO DAILY 06/16/17 Multiple Vitamins W/ Minerals [Centrum Silver] 1 ea PO DAILY 06/16/17 Pantoprazole Tablet [Protonix] 40 mg PO DAILY 06/16/17 Potassium 99 mg PO DAILY 06/16/17 Albuterol Sulfate [Proair Hfa] 2 puff INH Q6H PRN 08/13/17 Ascorbic Acid [Vitamin C] 500 mg PO DAILY 08/13/17 B-Complex W/ Folic Acid [Super B Complex Maxi] 1 tab PO DAILY 08/13/17 Budesonide-Formoterol Fumarate [Symbicort 160-4.5 Mcg/Act] 1 aer IN DAILY Cyclobenzaprine HCl 10 mg PO Q8H PRN 08/13/17 Docusate Sodium 100 mg PO DAILY 08/13/17 HYDROcodone 7.5MG/APAP 325MG [[place] 7.5/325] 1 ea PO Q8H 08/13/17 Losartan Potassium & Hydrochlo [Losartan Potassium/Hydroc 100-25 mg] 1 tab PO DAILY 08/13/17 Magnesium 500 mg PO DAILY 08/13/17 Umeclidinium [place] [Incruse Ellipta] 62.5 mcg IN DAILY 08/13/17 Review of Systems - Review of Systems Constitutional: States: see HPI EENTM: States: no symptoms reported Respiratory: States: cough, short of breath Cardiology: States: no symptoms reported Gastrointestinal/Abdominal: States: no symptoms reported Genitourinary: States: no symptoms reported Musculoskeletal: States: back pain, muscle pain Skin: States: no symptoms reported Neurological: States: no symptoms reported Endocrine: States: no symptoms reported Hematologic/Lymphatic: States: no symptoms reported All other Systems: Reviewed and Negative Past Medical History (General) - Patient Medical History Hx Seizures: No Hx Stroke: No Hx Dementia: No Hx Asthma: No Hx of COPD: Yes Hx Cardiac Disorders: No Hx Congestive Heart Failure: No Hx Pacemaker: No Hx Hypertension: Yes Hx Thyroid Disease: No Hx Diabetes: No Hx Gastroesophageal Reflux: Yes Hx Renal Disease: No Hx Cancer: Yes - lung CA Hx of HIV: No Hx Hepatitis C: No Hx MRSA: No - Vaccination History Hx Tetanus, Diphtheria Vaccination: No Hx Influenza Vaccination: Yes - 2017 Hx Pneumococcal Vaccination: No - Social History Hx Tobacco Use: Yes Hx Chewing Tobacco Use: No Hx Alcohol Use: No Hx Substance Use: No Hx Substance Use Treatment: No Hx Depression: No Hx Physical Abuse: No Hx Emotional Abuse: No Hx Suspected Abuse: No Family Medical History - Family History Mother Living Status: Still Living Hx Family Asthma: No Hx Family Congestive Heart Failure: Yes Hx Family Hypertension: Yes Hx Family Stroke: Yes Hx Cardiac Disease: Yes Hx Family Diabetes: No Hx Family Cancer: No Father Hx Family Asthma: No Hx Family Congestive Heart Failure: No Hx Family Hypertension: Yes Hx Family Stroke: No Hx Cardiac Disease: No Hx Family Diabetes: No Hx Family Cancer: No Physical Exam - Physical Exam General Appearance: Alert, Anxious, Well Developed, Well Groomed, Other - MILD DISTRESS Eyes, Ears, Nose, Throat Exam: PERRL/EOMI, normal ENT inspection, pharynx normal Neck Exam: full range of motion, normal alignment, normal inspection Cardiovascular/Respiratory: regular rate, rhythm, no M/R/G, normal peripheral pulses, no JVD Peripheral Pulses: radial,right: 2+, radial,left: 2+ Gastrointestinal/Abdominal: normal bowel sounds, non tender, soft, no organomegaly, no pulsatile mass Back Exam: normal inspection, vertebral tenderness Extremity Exam: no evidence of injury Neurologic: alert, oriented x 3 Skin Exam: normal color Progress - Results/Orders Results/Orders: CT RESULTS REVEAL A BURST FRACTURE OF L5 WITH RETROPULSION AND COMPROMISE OF THE SUBARACHNOID SPACE. I HAVE CONTACTED DR. BAIRD FROM [place] AND SUGGESTS TRANSFER TO [facility] FOR PROBABLE KYPHOPLASTY. Departure - Departure Clinical Impression: Closed L5 vertebral fracture Qualifiers: Encounter type: initial encounter Fracture morphology: burst- stable Qualified Code(s): S32.051A - Stable burst fracture of fifth lumbar vertebra, initial encounter for closed fracture Lung cancer Qualifiers: Laterality: unspecified laterality Lung location: upper lobe of lung Qualified Code(s): C34.10 - Malignant neoplasm of upper lobe, unspecified bronchus or lung Time of Disposition: 19:19 Disposition: Transfer to Hospital Condition: Good Referrals: Deondre Velasquez MD [Primary Care Provider] - 1-2 Weeks Home Medications: Ambulatory Orders Amitriptyline HCl [Elavil] 25 mg PO BID 06/16/17 Amlodipine Besylate 10 mg PO DAILY 06/16/17 Aspirin [Chavez Low Dose] 81 mg PO DAILY 06/16/17 Finasteride [Proscar] 5 mg PO DAILY 06/16/17 Glucosamine Sulfate 1,000 mg PO DAILY 06/16/17 Meloxicam 15 mg PO DAILY 06/16/17 Multiple Vitamins W/ Minerals [Centrum Silver] 1 ea PO DAILY 06/16/17 Pantoprazole Tablet [Protonix] 40 mg PO DAILY 06/16/17 Potassium 99 mg PO DAILY 06/16/17 Albuterol Sulfate [Proair Hfa] 2 puff INH Q6H PRN 08/13/17 Ascorbic Acid [Vitamin C] 500 mg PO DAILY 08/13/17 B-Complex W/ Folic Acid [Super B Complex Maxi] 1 tab PO DAILY 08/13/17 Budesonide-Formoterol Fumarate [Symbicort 160-4.5 Mcg/Act] 1 aer IN DAILY Cyclobenzaprine HCl 10 mg PO Q8H PRN 08/13/17 Docusate Sodium 100 mg PO DAILY 08/13/17 HYDROcodone 7.5MG/APAP 325MG [[place] 7.5/325] 1 ea PO Q8H 08/13/17 Losartan Potassium & Hydrochlo [Losartan Potassium/Hydroc 100-25 mg] 1 tab PO DAILY 08/13/17 Magnesium 500 mg PO DAILY 08/13/17 Umeclidinium [place] [Incruse Ellipta] 62.5 mcg IN DAILY 08/13/17 Transfer to Outside Facility - Transfer Information Accepting Provider:: DR. BAIRD AND DR. DEREJE RAIN Accepting Facility: [facility] Reason for Transfer: required specialist not available
--- NOTE | 2017-11-01 17:53 | CT ---
EXAM DESCRIPTION: Lumbar Spine CLINICAL HISTORY: 62 years Male, lumbar pain, fall on sunday, hx of CA of the lung COMPARISON: CT of the abdomen pelvis dated 22 August 2016 TECHNIQUE: Transaxial images were obtained without intravenous contrast media. Sagittal and coronal reconstruction was performed.This exam was performed according to our departmental dose-optimization program, which includes automated exposure control, adjustment of the mA and/or kV according to patient size and/or use of iterative reconstruction technique. FINDINGS: No extra spinous abnormality is detected. Examination does demonstrate a burst fracture of the L5 vertebral body with retropulsion of the posterior superior fragment 7.8 mm. There is pronounced compromise of the lumbar subarachnoid space at the L4-5 level. Some facet joint arthritis is observed at this level. No further vertebral body abnormality is detected. No disc level pathology is seen. The exam does reveal endplate degenerative changes at the L4-5 level. No paravertebral mass or hematoma is detected. A small bone island is observed in the right ilium at the level of the sacroiliac joint. IMPRESSION: A burst fracture of L5 is observed with retropulsion of the posterior superior margin markedly compromising the lumbar subarachnoid space. Neural foraminal compromise is observed at the L4-5 level level more pronounced to the patient's right. No CT evidence of a pathologic fracture is seen. Electronically signed by: Vivek Richardson MD 11/01/2017 5:52 PM [employer]
[2017-11-01] MEDS ORDERED: MORPHINE SULFATE INJ 10 MG/ML VIAL IM ONE (18:10)
[2017-11-01] MEDS ORDERED: ONDANSETRON INJ 4 MG/2 ML VIAL IM ONE (18:11)
[2017-11-01 19:47] VITALS: TEMP 98.1; O2SAT 99
[2017-11-01 20:18] VITALS: BP 137/82
== END 2017-11-01 20:00 | disposition short-term general hospital (02) ==
LOC: ER 16:40
DX: S32.051A Stable burst fracture of fifth lumbar vertebra, initial encounter for closed fracture (principal); C34.90 Malignant neoplasm of unspecified part of unspecified bronchus or lung; J44.9 Chronic obstructive pulmonary disease, unspecified; I10 Essential (primary) hypertension; K21.9 Gastro-esophageal reflux disease without esophagitis; Z87.891 Personal history of nicotine dependence; Z79.899 Other long term (current) drug therapy; W19.XXXA Unspecified fall, initial encounter; Y92.009 Unspecified place in unspecified non-institutional (private) residence as the place of occurrence of the external cause
CPT/HCPCS: 72131; J2270; J2405

== ENCOUNTER 2017-11-25 12:33 | Emergency (ER) | payer OTHER ==
[2017-11-25 12:52] VITALS: TEMP 98.2
--- NOTE | 2017-11-25 13:11 | ED.PDOC ---
History of Present Illness - General Chief Complaint: Respiratory Problem Stated Complaint: cough,congestion,fever,chills Time Seen by Provider: 11/25/17 12:56 Source: patient Exam Limitations: no limitations Additional Information: PT WITH COUGH PROD WHITE TO YELLOW SPUTUM. HAS "STAGE 4" LUNG CA IS WORRIED HE MAY HAVE PNEUMONIA. - History of Present Illness Timing/Duration: other - 4 DAYS Cough Quality/Degree: moderate, productive cough, sputum - YELLOW TO WHITE, NO BLOOD Improving Factors: nothing Allergies/Adverse Reactions: Allergies Penicillins Allergy (Mild, Verified 11/01/17 16:53) Hives Home Medications: Ambulatory Orders Amitriptyline HCl [Elavil] 25 mg PO BID 06/16/17 Aspirin [Chavez Low Dose] 81 mg PO DAILY 06/16/17 Finasteride [Proscar] 5 mg PO DAILY 06/16/17 Glucosamine Sulfate 1,000 mg PO DAILY 06/16/17 Meloxicam 15 mg PO DAILY 06/16/17 Multiple Vitamins W/ Minerals [Centrum Silver] 1 ea PO DAILY 06/16/17 Pantoprazole Tablet [Protonix] 40 mg PO DAILY 06/16/17 Potassium 99 mg PO DAILY 06/16/17 Albuterol Sulfate [Proair Hfa] 2 puff INH Q6H PRN 08/13/17 Docusate Sodium 100 mg PO DAILY 08/13/17 Umeclidinium Serena [Incruse Ellipta] 62.5 mcg IN DAILY 08/13/17 Albuterol Sulfate Nebs [Proventil Nebs] 1 unit NEB Q4HR PRN 30 Days #120 vial Azithromycin Tab [Zithromax] 250 mg PO QDAC #4 tab 11/25/17 Baclofen 10 mg PO TID 11/25/17 Budesonide-Formoterol Fumarate [Symbicort] 1 aer IN BID 11/25/17 Cefuroxime Axetil [Ceftin] 500 mg PO BID #20 tablet 11/25/17 Dexamethasone 2 mg PO DAILY 11/25/17 Gabapentin 100 mg PO TID 11/25/17 HYDROcodone 10MG/APAP 325MG [[place] 10/325] 1 tab PO Q4H 11/25/17 Losartan Potassium 50 mg PO DAILY 11/25/17 Methadone HCl [Methadone] 5 mg PO TID 11/25/17 Olanzapine 2.5 mg PO PRN 11/25/17 diphenhydrAMINE HCL [Benadryl] 25 mg PO BEDTIME 11/25/17 diphenhydrAMINE HCL [Benadryl] 50 mg PO DAILY 11/25/17 Review of Systems - Review of Systems Constitutional: Denies: chills, fever EENTM: States: no symptoms reported Respiratory: States: cough, short of breath, wheezing Cardiology: States: no symptoms reported Gastrointestinal/Abdominal: States: no symptoms reported Genitourinary: States: no symptoms reported Musculoskeletal: States: no symptoms reported Skin: States: no symptoms reported Neurological: States: no symptoms reported Endocrine: States: no symptoms reported Hematologic/Lymphatic: States: no symptoms reported Past Medical History (General) - Patient Medical History Hx Seizures: No Hx Stroke: No Hx Dementia: No Hx Asthma: No Hx of COPD: Yes Hx Cardiac Disorders: No Hx Congestive Heart Failure: No Hx Pacemaker: No Hx Hypertension: Yes Hx Thyroid Disease: No Hx Diabetes: No Hx Gastroesophageal Reflux: Yes Hx Renal Disease: No Hx Cancer: Yes - lung CA Hx of HIV: No Hx Hepatitis C: No Hx MRSA: No - Vaccination History Hx Tetanus, Diphtheria Vaccination: No Hx Influenza Vaccination: Yes - 07/10/17 Hx Pneumococcal Vaccination: Yes - 07/10/17 - Social History Hx Tobacco Use: Yes Hx Chewing Tobacco Use: No Hx Alcohol Use: No Hx Substance Use: No Hx Substance Use Treatment: No Hx Depression: No Hx Physical Abuse: No Hx Emotional Abuse: No Hx Suspected Abuse: No Family Medical History - Family History Mother Living Status: Still Living Hx Family Asthma: No Hx Family Congestive Heart Failure: Yes Hx Family Hypertension: Yes Hx Family Stroke: Yes Hx Cardiac Disease: Yes Hx Family Diabetes: No Hx Family Cancer: No Father Hx Family Asthma: No Hx Family Congestive Heart Failure: No Hx Family Hypertension: Yes Hx Family Stroke: No Hx Cardiac Disease: No Hx Family Diabetes: No Hx Family Cancer: No Physical Exam - Physical Exam General Appearance: Alert, No apparent distress Eye Exam: bilateral normal ENT Exam: normal ENT inspection, hearing grossly normal Neck: non-tender, supple Respiratory: other - DIMINISHED R UPPER AND LOWER. NO RALES, RHONCHI, OCC WHEEZE. Cardiovascular/Chest: regular rate, rhythm, no murmur Gastrointestinal/Abdominal: normal bowel sounds, soft, no organomegaly Extremity: normal range of motion, non-tender, normal inspection Neurologic: alert, normal mood/affect Skin Exam: normal color, warm/dry Lymphatic: no adenopathy Progress - Progress Progress: 11/25/17 14:00 SATS 90-92%. DAUGHTER HAS NEBULIZER. PT ADVISED TO STAY REFUSES. - EKG/XRAY/CT XRAY: chest - RUL INFILTRATE/MASS. Departure - Departure Clinical Impression: Pneumonia Qualifiers: Pneumonia type: due to unspecified organism Laterality: right Lung location: upper lobe of lung Qualified Code(s): J18.1 - Lobar pneumonia, unspecified organism COPD (chronic obstructive pulmonary disease) Qualifiers: COPD type: emphysema Emphysema type: unspecified Qualified Code(s): J43.9 - Emphysema, unspecified Time of Disposition: 14:03 Disposition: Discharge to Home or Self Care Condition: Fair Departure Forms: ED Discharge - Pt. Copy, Patient Portal Self Enrollment Instructions: Pneumonia-Adult Referrals: Deondre Velasquez MD [Primary Care Provider] - 1-2 Weeks Prescriptions: Albuterol Sulfate Nebs [Proventil Nebs] 1 unit NEB Q4HR PRN 30 Days #120 vial PRN Reason: Shortness Of Breath/Wheezing Azithromycin Tab [Zithromax] 250 mg PO QDAC #4 tab Cefuroxime Axetil [Ceftin] 500 mg PO BID #20 tablet Home Medications: Ambulatory Orders Amitriptyline HCl [Elavil] 25 mg PO BID 06/16/17 Aspirin [Chavez Low Dose] 81 mg PO DAILY 06/16/17 Finasteride [Proscar] 5 mg PO DAILY 06/16/17 Glucosamine Sulfate 1,000 mg PO DAILY 06/16/17 Meloxicam 15 mg PO DAILY 06/16/17 Multiple Vitamins W/ Minerals [Centrum Silver] 1 ea PO DAILY 06/16/17 Pantoprazole Tablet [Protonix] 40 mg PO DAILY 06/16/17 Potassium 99 mg PO DAILY 06/16/17 Albuterol Sulfate [Proair Hfa] 2 puff INH Q6H PRN 08/13/17 Docusate Sodium 100 mg PO DAILY 08/13/17 Umeclidinium Serena [Incruse Ellipta] 62.5 mcg IN DAILY 08/13/17 Albuterol Sulfate Nebs [Proventil Nebs] 1 unit NEB Q4HR PRN 30 Days #120 vial Azithromycin Tab [Zithromax] 250 mg PO QDAC #4 tab 11/25/17 Baclofen 10 mg PO TID 11/25/17 Budesonide-Formoterol Fumarate [Symbicort] 1 aer IN BID 11/25/17 Cefuroxime Axetil [Ceftin] 500 mg PO BID #20 tablet 11/25/17 Dexamethasone 2 mg PO DAILY 11/25/17 Gabapentin 100 mg PO TID 11/25/17 HYDROcodone 10MG/APAP 325MG [[place] 10/325] 1 tab PO Q4H 11/25/17 Losartan Potassium 50 mg PO DAILY 11/25/17 Methadone HCl [Methadone] 5 mg PO TID 11/25/17 Olanzapine 2.5 mg PO PRN 11/25/17 diphenhydrAMINE HCL [Benadryl] 25 mg PO BEDTIME 11/25/17 diphenhydrAMINE HCL [Benadryl] 50 mg PO DAILY 11/25/17
[2017-11-25] MEDS ORDERED: AZITHROMYCIN IV 500 MG in SODIUM CHLORIDE 0.9% 250ML 250 ML IVPB ONE (14:01)
[2017-11-25] MEDS ORDERED: cefTRIAXone SODIUM 1 GM in SODIUM CHL 0.9% 50ML MIN-BAG+ 50 ML IVPB ONE (14:01)
--- NOTE | 2017-11-25 14:03 | RAD ---
Chest single view on 11/25/2017 CLINICAL INDICATION: Cough COMPARISON: 08/14/2017 FINDINGS: There has been development of extensive right mid and upper lung opacity most consistent with pneumonia with pleural thickening or small right pleural effusion. Recommend follow-up to resolution. If the patient has any history of prior malignancy consider follow-up chest CT to better evaluate. Left subclavian Port-A-Cath tip is in the SVC. Left lung is clear. Heart is within normal limits for size. IMPRESSION: Development of extensive right-sided opacity likely representing pneumonia although if the patient has any history of prior malignancy would recommend follow-up chest CT with contrast. Recommend at least follow-up to resolution. Electronically signed by: Ferdinand Salinas 11/25/2017 2:01 PM CDT
[2017-11-25] MEDS ORDERED: SODIUM CHLORIDE 0.9% 1000ML 1,000 ML IVS ONE (14:13)
[2017-11-25] MEDS ORDERED: SODIUM CHL 0.9% 50ML MIN-BAG+ 50 ML IVPB ONE (14:18)
[2017-11-25] MEDS ORDERED: cefTRIAXone SODIUM 1 GM VIAL ONE (14:18)
[2017-11-25] MEDS ORDERED: AZITHROMYCIN IV 500 MG VIAL IVPB ONE (15:11)
[2017-11-25] MEDS ORDERED: SODIUM CHLORIDE 0.9% 250ML 250 ML ONE (15:12)
[2017-11-25] MEDS ORDERED: HEPARIN SODIUM 100 U/ML 5 ML SYG IV ONE (17:20)
[2017-11-25 18:02] VITALS: BP 120/82; O2SAT 92
[2017-11-26] MEDS ORDERED: methylPREDNISolone SODIUM SUC 125 MG/2 ML VIAL IV ONE (13:23)
[2017-11-26] MEDS ORDERED: IPRATROPIUM/ALBUTEROL 3 ML VIAL NEB ONE (13:23)
[2017-11-26] MEDS ORDERED: CEFEPIME 1 GM in SODIUM CHLORIDE 0.9% 50ML 50 ML IVPB ONE (13:24)
[2017-11-26] MEDS ORDERED: HEPARIN SODIUM 100 U/ML 5 ML SYG IV ONE (17:02)
== END 2017-11-25 18:02 | disposition home or self-care (01) ==
LOC: ER 12:33
DX: J18.1 Lobar pneumonia, unspecified organism (principal); J43.9 Emphysema, unspecified; C34.90 Malignant neoplasm of unspecified part of unspecified bronchus or lung; K21.9 Gastro-esophageal reflux disease without esophagitis; Z87.891 Personal history of nicotine dependence; I10 Essential (primary) hypertension; Z79.899 Other long term (current) drug therapy; Z79.82 Long term (current) use of aspirin; Z88.0 Allergy status to penicillin
CPT/HCPCS: 71045; J0456; J0696; J1642; J7030; J7050

== ENCOUNTER 2017-11-26 12:07 | Emergency (ER) | payer OTHER ==
--- NOTE | 2017-11-26 12:31 | ED.PDOC ---
History of Present Illness - General Chief Complaint: Respiratory Problem Stated Complaint: DX'd with Pneumonia yesterday Time Seen by Provider: 11/26/17 12:28 Source: patient, RN notes reviewed Additional Information: 62 YEAR OLD WHITE MALE WITH HISTORY OF COPD STAGE IV CA LUNG PRESENTS TOT [facility] ER WITH HISTORY OF PNEUMONIA DIAGNOSED YESTERDAY AND WAS ADVISED TO GET ADMITTED BUT WENT HOME TODAY HE WAS SEEN AT THE CLINIC BY [facility] SENT BACK TO THE ER PT HAS NO FEVER CHILLS NO CHEST PAIN HIS SHORTNESS OF BREATH IS BETTER THAN YESTERDAY HE HAD NO HYPOXIA VITAL SIGNS NORMAL PATIENT DOES NOT APPEAR TOXIC OR IN ACUTE RESPIRATORY DISTRESS X RAY TODAY APPEARS BETTER THAN YESTERDAY HE DOES HAVE MASS BUT NO CONSOLIDATION BREATH SOUNDS ARE DIMINISHED AND DISTANT WITH SCATTERED RHONCHI - History of Present Illness Timing/Duration: 1 week Severity: moderate Improving Factors: nothing Worsening Factors: movement Associated Symptoms: denies symptoms Allergies/Adverse Reactions: Allergies Penicillins Allergy (Mild, Verified 11/01/17 16:53) Hives Home Medications: Ambulatory Orders Amitriptyline HCl [Elavil] 25 mg PO BID 06/16/17 Aspirin [Chavez Low Dose] 81 mg PO DAILY 06/16/17 Finasteride [Proscar] 5 mg PO DAILY 06/16/17 Glucosamine Sulfate 1,000 mg PO DAILY 06/16/17 Meloxicam 15 mg PO DAILY 06/16/17 Multiple Vitamins W/ Minerals [Centrum Silver] 1 ea PO DAILY 06/16/17 Pantoprazole Tablet [Protonix] 40 mg PO DAILY 06/16/17 Potassium 99 mg PO DAILY 06/16/17 Albuterol Sulfate [Proair Hfa] 2 puff INH Q6H PRN 08/13/17 Docusate Sodium 200 mg PO BID 08/13/17 Umeclidinium [place] [Incruse Ellipta] 62.5 mcg IN DAILY 08/13/17 Albuterol Sulfate Nebs [Proventil Nebs] 1 unit NEB Q4HR PRN 30 Days #120 vial Azithromycin Tab [Zithromax] 250 mg PO QDAC #4 tab 11/25/17 Baclofen 10 mg PO TID 11/25/17 Budesonide-Formoterol Fumarate [Symbicort] 1 aer IN BID 11/25/17 Cefuroxime Axetil [Ceftin] 500 mg PO BID #20 tablet 11/25/17 Dexamethasone 2 mg PO DAILY 11/25/17 Gabapentin 100 mg PO TID 11/25/17 HYDROcodone 10MG/APAP 325MG [[place] 10/325] 1 tab PO Q4H 11/25/17 Losartan Potassium 50 mg PO DAILY 11/25/17 Methadone HCl [Methadone] 5 mg PO TID 11/25/17 Olanzapine 2.5 mg PO PRN 11/25/17 diphenhydrAMINE HCL [Benadryl] 25 mg PO BEDTIME 11/25/17 diphenhydrAMINE HCL [Benadryl] 50 mg PO DAILY 11/25/17 Methylprednisolone [Medrol Dose Med] 4 mg PO DAILY 6 Days #21 tab 11/26/17 Review of Systems - Review of Systems Constitutional: States: weakness EENTM: States: no symptoms reported Respiratory: States: cough, short of breath Cardiology: States: no symptoms reported Gastrointestinal/Abdominal: States: no symptoms reported Genitourinary: States: no symptoms reported Musculoskeletal: States: no symptoms reported Skin: States: no symptoms reported Neurological: States: no symptoms reported Endocrine: States: no symptoms reported Hematologic/Lymphatic: States: no symptoms reported Past Medical History (General) - Patient Medical History Hx Seizures: No Hx Stroke: No Hx Dementia: No Hx Asthma: No Hx of COPD: Yes Hx Cardiac Disorders: No Hx Congestive Heart Failure: No Hx Pacemaker: No Hx Hypertension: Yes Hx Thyroid Disease: No Hx Diabetes: No Hx Gastroesophageal Reflux: Yes Hx Renal Disease: No Hx Cancer: Yes - lung CA Hx of HIV: No Hx Hepatitis C: No Hx MRSA: No - Vaccination History Hx Tetanus, Diphtheria Vaccination: No Hx Influenza Vaccination: Yes - 07/10/17 Hx Pneumococcal Vaccination: Yes - 07/10/17 - Social History Hx Tobacco Use: Yes Hx Chewing Tobacco Use: No Hx Alcohol Use: No Hx Substance Use: No Hx Substance Use Treatment: No Hx Depression: No Hx Physical Abuse: No Hx Emotional Abuse: No Hx Suspected Abuse: No Family Medical History - Family History Mother Living Status: Still Living Hx Family Asthma: No Hx Family Congestive Heart Failure: Yes Hx Family Hypertension: Yes Hx Family Stroke: Yes Hx Cardiac Disease: Yes Hx Family Diabetes: No Hx Family Cancer: No Father Hx Family Asthma: No Hx Family Congestive Heart Failure: No Hx Family Hypertension: Yes Hx Family Stroke: No Hx Cardiac Disease: No Hx Family Diabetes: No Hx Family Cancer: No Physical Exam - Physical Exam General Appearance: Comfortable, Emaciated, Frail Eye Exam: bilateral normal Ears, Nose, Throat: hearing grossly normal, normal ENT inspection, normal pharynx Neck: non-tender, full range of motion, supple Respiratory: chest non-tender, no respiratory distress, no accessory muscle use , rhonchi, other - HE MAINTAINED O2 SAT 93-95 % ON RA Cardiovascular/Chest: normal peripheral pulses, regular rate, rhythm, no edema, no gallop, no JVD, no murmur Gastrointestinal/Abdominal: normal bowel sounds, non tender, soft, no organomegaly, no pulsatile mass Neurologic: case finisher II-XII nml as tested, no motor/sensory deficits, alert, normal mood/affect Skin Exam: normal color Lymphatic: no adenopathy Progress - Results/Orders Results/Orders: HE CAN BE MANAGED OUTPATIENT I DISCUSSED WITH THE PATIENT HE IS AGREES WITH THE [facility] HE WAS AMBULATED IN THE [place] HE HAD DIFFICULTY WALKING DUE TO HIS SCIATICA BUT NO RESPIRATORY DISTRESS NOTED POST AMBULATION BECAME TACHY BUT NO HYPOXIA HE WAS GIVEN 1 DOSE OF IV CEFEPIME AND SOLUMEDROL IV ADVISED TO TAKE THE ORAL ANTIBIOTICS ZITHROMYCIN GIVEN YESTERDAY AND MEDROL DOSEPAK 4 MG FOLLOW UP WITH HIS MD IF NOT IMPROVED TO RETURN BACK TO THE ED Departure - Departure Clinical Impression: Stage 4 lung cancer, Pneumonia, COPD (chronic obstructive pulmonary disease) Time of Disposition: 16:55 Disposition: Discharge to Home or Self Care Condition: Good Departure Forms: ED Discharge - Pt. Copy, Patient Portal Self Enrollment Diet: resume usual diet Referrals: Deondre Velasquez MD [Primary Care Provider] - 1-2 Weeks Prescriptions: Methylprednisolone [Medrol Dose Med] 4 mg PO DAILY 6 Days #21 tab Home Medications: Ambulatory Orders Amitriptyline HCl [Elavil] 25 mg PO BID 06/16/17 Aspirin [Chavez Low Dose] 81 mg PO DAILY 06/16/17 Finasteride [Proscar] 5 mg PO DAILY 06/16/17 Glucosamine Sulfate 1,000 mg PO DAILY 06/16/17 Meloxicam 15 mg PO DAILY 06/16/17 Multiple Vitamins W/ Minerals [Centrum Silver] 1 ea PO DAILY 06/16/17 Pantoprazole Tablet [Protonix] 40 mg PO DAILY 06/16/17 Potassium 99 mg PO DAILY 06/16/17 Albuterol Sulfate [Proair Hfa] 2 puff INH Q6H PRN 08/13/17 Docusate Sodium 200 mg PO BID 08/13/17 Umeclidinium [place] [Incruse Ellipta] 62.5 mcg IN DAILY 08/13/17 Albuterol Sulfate Nebs [Proventil Nebs] 1 unit NEB Q4HR PRN 30 Days #120 vial Azithromycin Tab [Zithromax] 250 mg PO QDAC #4 tab 11/25/17 Baclofen 10 mg PO TID 11/25/17 Budesonide-Formoterol Fumarate [Symbicort] 1 aer IN BID 11/25/17 Cefuroxime Axetil [Ceftin] 500 mg PO BID #20 tablet 11/25/17 Dexamethasone 2 mg PO DAILY 11/25/17 Gabapentin 100 mg PO TID 11/25/17 HYDROcodone 10MG/APAP 325MG [[place] 10/325] 1 tab PO Q4H 11/25/17 Losartan Potassium 50 mg PO DAILY 11/25/17 Methadone HCl [Methadone] 5 mg PO TID 11/25/17 Olanzapine 2.5 mg PO PRN 11/25/17 diphenhydrAMINE HCL [Benadryl] 25 mg PO BEDTIME 11/25/17 diphenhydrAMINE HCL [Benadryl] 50 mg PO DAILY 11/25/17 Methylprednisolone [Medrol Dose Med] 4 mg PO DAILY 6 Days #21 tab 11/26/17
--- NOTE | 2017-11-26 13:04 | RAD ---
EXAM DESCRIPTION: Chest,1 View CLINICAL HISTORY: COPD CA LUNG PNEUMONIA COMPARISON: 25 November 2017 TECHNIQUE: AP portable chest FINDINGS: Some improvement in this patient's right lung infiltrate is observed. There is a decrease in total lung volume on the right. Pleural-based mass/thickening is observed and also appear slightly less pronounced. The left chest is clear. An [id number] catheter seen in place on the left with the distal tip in the region of the superior vena cava. The heart is within range of normal. No pleural fluid is seen. IMPRESSION: An improving left-sided infiltrate is demonstrated. Electronically signed by: Vivek Richardson MD 11/26/2017 1:02 PM CDT
[2017-11-26] MEDS ORDERED: methylPREDNISolone SODIUM SUC 125 MG/2 ML VIAL IV ONE (13:36)
[2017-11-26] MEDS ORDERED: IPRATROPIUM/ALBUTEROL 3 ML VIAL NEB ONE (13:37)
[2017-11-26] MEDS ORDERED: CEFEPIME 1 GM in SODIUM CHLORIDE 0.9% 50ML 50 ML IVPB ONE (13:37)
[2017-11-26 13:51] VITALS: TEMP 98.4
[2017-11-26] MEDS ORDERED: CEFEPIME 2 GM VIAL IVPB ONE (14:05)
[2017-11-26] MEDS ORDERED: SODIUM CHLORIDE 0.9% 50ML 50 ML ONE (14:06)
[2017-11-26] MEDS ORDERED: ACETAMINOPHEN LIQUID 160 MG/5 ML UD PO ONE (16:50)
[2017-11-26 17:32] VITALS: BP 137/75; O2SAT 97
== END 2017-11-26 17:30 | disposition home or self-care (01) ==
LOC: ER 12:07
DX: J18.9 Pneumonia, unspecified organism (principal); J44.9 Chronic obstructive pulmonary disease, unspecified; C34.90 Malignant neoplasm of unspecified part of unspecified bronchus or lung; I10 Essential (primary) hypertension; K21.9 Gastro-esophageal reflux disease without esophagitis; Z87.891 Personal history of nicotine dependence; Z79.82 Long term (current) use of aspirin; Z79.899 Other long term (current) drug therapy; Z88.0 Allergy status to penicillin
CPT/HCPCS: 36415; 71045; 80053; 85025; 87040; 94640; A4216; J0692; J2930; J7620